=== PATIENT | female | born 1990 | race African-American/Black ===

== ENCOUNTER 2019-05-20 19:36 | Emergency (ER) | payer SELFPAY ==
[~2019-05-20] VITALS: Ht 149.9 cm; Wt 49.9 kg
[~2019-05-20 19:36] MED LIST: FLOMAX0.4 MG ORAL; TYLENOL EXTRA500 MG ORAL; ZOFRAN4 M1 ORAL
--- NOTE | 2019-05-20 20:01 | NUR ---
ED Nurse Note: Patient in Ortho await revoew complaining of chadwick score 8. No radiation, no SOB.
--- NOTE | 2019-05-20 20:16 | NUR ---
ED Nurse Note: EKG done
--- NOTE | 2019-05-20 20:26 | Emergency Room Report ---
History of Present Illness General Chief Complaint: Chest Pain Source: Patient Present Illness HPI Resents with chest pain that began 11 today. She got as her asthma and took a breathing treatment. She coughed up little bit of phlegm. Left-sided pressure. She then tried taking Zantac. The pain is still persisting. Its slightly worse when she lays down. She does not smoke. She does not take control pills. She does not believe she is at this time. She denies any fevers chills. She had slight sore throat. No nausea vomiting or diarrhea. She rates the pain 8/10. She has no risk factors for cardiac disease. She never had pain like this before. Only QVar at home Allergies: Coded Allergies: No Known Allergies (Unverified , 03/10/15) Patient History Last Menstrual Period: 05/06/19 : 1 Para: 1 Reviewed Nursing Documentation: PMH: Agreed; PSxH: Agreed Nursing Documentation-PMH Hx Asthma: Yes Physical Exam Vital Signs Date Time Temp Pulse Resp B/P (MAP) Pulse Ox O2 Delivery O2 Flow Rate FiO2 05/20/19 19:50 98.2 88 16 122/66 (84) 100 Room Air Medical Decision Making Diagnostic Impression: Primary Impression: Chest pain Additional Impression: Bronchospasm Laboratory Tests Test 05/20/19 20:45 Urine Color Pale yellow Urine Appearance Clear Urine pH 6 (4.5-8.0) Urine Specific [place] 1.015 (1.005-1.035) Urine Protein Negative (NEGATIVE) Urine Glucose (UA) Negative (NEGATIVE) Urine Ketones Negative (NEGATIVE) Urine Blood Negative (NEGATIVE) Urine Nitrite Negative (NEGATIVE) Urine Bilirubin Negative (NEGATIVE) Urine Urobilinogen Normal MG/DL (0.0-1.0) Urine Leukocyte Esterase Negative (NEGATIVE) Urine HCG, Qualitative Negative (NEGATIVE) EKG Diagnostic Results Rate: normal Rhythm: NSR ST Segments: no acute changes Rhythm Strip Diag. Results EP Interpretation: yes Rhythm: NSR, no PVC's, no ectopy Status: improved Disposition: HOME, SELF-CARE Condition: Improved Kush Mao MD May 20, 2019 20:26
[2019-05-20] MEDS ORDERED: Acetaminophen 650 MG SUPP RECTAL ONE (20:30)
[2019-05-20] MEDS ORDERED: Mylanta II UD 30ml ORAL ONE (20:30)
[2019-05-20] MEDS ORDERED: Ipratropium 0.02% Inh Soln 2.5ml UD HHN ONE (20:30)
[2019-05-20] MEDS ORDERED: Albuterol ud Inhalation HHN ONE (20:30)
[2019-05-20 20:58] LABS: APPEARANCE,URINE CLEAR; BILIRUBIN, URINE NEGATIVE (NEGATIVE); COLOR,URINE PALE YELLOW; GLUCOSE, URINE (UA) NEGATIVE (NEGATIVE); KETONES,URINE NEGATIVE (NEGATIVE); LEUKOCYTE ESTERASE ,URINE NEGATIVE (NEGATIVE); NITRITE,URINE NEGATIVE (NEGATIVE); PH,URINE 6 (4.5-8.0); PROTEIN,URINE NEGATIVE (NEGATIVE); UROBILINOGEN,URINE NORMAL MG/DL (0.0-1.0)
[2019-05-20 21:02] VITALS: BP 119/75
[2019-05-20] MEDS ORDERED: ALBUTEROL SULF8.5 GM INH (21:52)
[2019-05-20 22:05] VITALS: BP 112/59
--- NOTE | 2019-05-20 22:05 | NUR ---
ER DISCHARGE NOTE: Patient is cleared to be discharged per ERMD, pt is aox4, on room air, with stable vital signs. pt was given dc and prescription instructions, pt was able to verbalize understanding, pt id band removed without complications. pt is able to ambulate with steady gait. pt took all belongings.
--- NOTE | 2019-05-21 14:39 | Diagnostic Imaging Report ---
Indication: Chest pain Technique: One view of the chest Comparison: none Findings: Lungs and pleural spaces are clear. Heart size is normal. Impression: No acute process
== END 2019-05-20 22:05 | disposition home or self-care (01) ==
LOC: EMR 20:27
DX: J98.01 Acute bronchospasm (principal); R07.9 Chest pain, unspecified
CPT/HCPCS: 71045; 81003; 81025; 93005; 94640; 94664; 99284